=== PATIENT | female | born 1960 | race Caucasian/White ===

== ENCOUNTER 2016-11-07 01:51 | Emergency (ER) | payer OTHER ==
[2016-11-07] MEDS ORDERED: methylPREDNISolone 125 MG* 2 ML VIAL IV ONE (01:55)
[2016-11-07] MEDS ORDERED: Albuterol/Ipratropium NEB.SOL* Albuterol 2.5 MG/Ipratropium 0.5 MG 3 ML INH ONE (01:55)
[2016-11-07 02:19] LABS: Hematocrit 38 % (35-47); Mean Corpuscular HGB Conc 35 g/dl (31-36); Mean Corpuscular Hemoglobin 31 pg (27-31); Mean Corpuscular Volume 90 fL (80-97); Mean Platelet Volume 9 um3 (7.4-10.4); Red Blood Count 4.17 10^6/ul (4.0-5.4); Red Cell Distribution Width 12 % (10.5-15); White Blood Count 8.2 10^3/ul (3.5-10.8)
[2016-11-07 02:22] LABS: Add Diff/Slide Review? Slide Review Added; Comments Flag Yes
[2016-11-07 02:30] LABS: Albumin 3.7 g/dL (3.2-5.2); BUN/Creatinine Ratio 13.6 (8-20); Calcium 9.4 mg/dL (8.6-10.3); EGFR African American 136.1 (>60); EGFR Non-African American 105.8 (>60); Globulin 3.7 g/dL (2-4); Total Bilirubin 1.1 mg/dL (0.2-1.0); Total Protein 7.4 g/dL (6.4-8.9)
[2016-11-07] MEDS ORDERED: Potassium Chloride LIQUID* 20 MEQ PACKET PO ONE (02:42)
[2016-11-07] MEDS ORDERED: Potassium Chlor TAB* 20 MEQ TAB.ER PO ONE (03:06)
--- NOTE | 2016-11-07 03:18 | ED ---
Luis Enrique Wills Benjamin, scribed for Adam Mota MD on 11/07/16 at 0200 . Shortness of Breath - HPI Summary HPI Summary: 55yo female c/o SOB and nonproductive cough. Pt has been dx'ed with PNA on the , and is on amoxicillin for about a week now. - History of Current Complaint Chief Complaint: EDShortnessOfBreath Time Seen by Provider: 11/07/16 01:52 Hx Obtained From: Patient Onset/Duration: Gradual Onset, Lasting Days, Still Present Current Severity: Moderate Dyspnea At: Rest Aggrevating Factors: Nothing Associated Signs & Symptoms: Cough (Nonproductive) - Allergy/Home Medications Allergies/Adverse Reactions: Allergies Allergy/AdvReac Type Severity Reaction Status Date / Time Lisinopril Allergy Coughing Verified 11/07/16 01:55 PMH/Surg Hx/FS Hx/Imm Hx Cardiovascular History: Reports: Hx Hypertension Respiratory History: Reports: Hx Pneumonia Infectious Disease History: No Infectious Disease History: Denies: Traveled Outside the [place] in Last 30 Days - Family History Known Family History: Positive: Other - Prostate CA Negative: Cardiac Disease, Hypertension, Diabetes - Social History Occupation: Employed Full-time Lives: Alone Alcohol Use: Occasionally Smoking Status (MU): Current Some Day Smoker Review of Systems Constitutional: Negative Eyes: Negative ENT: Negative Cardiovascular: Negative Positive: Shortness Of Breath, Cough Gastrointestinal: Negative Genitourinary: Negative Musculoskeletal: Negative Skin: Negative Neurological: Negative Psychological: Normal All Other Systems Reviewed And Are Negative: Yes Physical Exam Triage Information Reviewed: Yes Vital Signs On Initial Exam: Initial Vitals Temp Pulse Resp BP Pulse Ox 100.2 F 92 19 107/69 94 11/07/16 01:53 11/07/16 01:53 11/07/16 01:53 11/07/16 01:53 11/07/16 01:53 Vital Signs Reviewed: Yes Appearance: Positive: Well-Appearing, No Pain Distress Skin: Positive: Warm Head/Face: Positive: Normal Head/Face Inspection Eyes: Positive: KERA ENT: Positive: Hearing grossly normal Neck: Positive: Supple Respiratory/Lung Sounds: Positive: Breath Sounds Present, Rhonchi - few coarse, scattered Cardiovascular: Positive: RRR Abdomen Description: Positive: Nontender, Soft Bowel Sounds: Positive: Present Musculoskeletal: Positive: Strength/ROM Intact Neurological: Positive: Alert, Oriented to Person Place, Time Psychiatric: Positive: Affect/Mood Appropriate Diagnostics - Vital Signs Vital Signs Temp Pulse Resp BP Pulse Ox 11/07/16 01:53 100.2 F 92 19 107/69 94 - Laboratory Lab Results: Lab Results 11/07/16 11/07/16 Range/Units 02:00 02:00 WBC 8.2 (3.5-10.8) 10^3/ul RBC 4.17 (4.0-5.4) 10^6/ul Hgb 13.0 (12.0-16.0) g/dl Hct 38 (35-47) % MCV 90 (80-97) fL MCH 31 (27-31) pg MCHC 35 (31-36) g/dl RDW 12 (10.5-15) % Plt Count 190 (150-450) 10^3/ul MPV 9 (7.4-10.4) um3 Neut % (Auto) 73.0 (38-83) % Lymph % (Auto) 15.7 L (25-47) % Quay % (Auto) 9.5 H (1-9) % Eos % (Auto) 0.4 (0-6) % Baso % (Auto) 1.4 (0-2) % Absolute Neuts (auto) 6.0 (1.5-7.7) 10^3/ul Absolute Lymphs (auto) 1.3 (1.0-4.8) 10^3/ul Absolute Monos (auto) 0.8 (0-0.8) 10^3/ul Absolute Eos (auto) 0 (0-0.6) 10^3/ul Absolute Basos (auto) 0.1 (0-0.2) 10^3/ul Absolute Nucleated RBC 0.01 10^3/ul Nucleated RBC % 0.1 Sodium 131 L (133-145) mmol/L Potassium 3.0 L (3.5-5.0) mmol/L Chloride 98 L (101-111) mmol/L Carbon Dioxide 26 (22-32) mmol/L Anion Gap 7 (2-11) mmol/L BUN 8 (6-24) mg/dL Creatinine 0.59 (0.51-0.95) mg/dL Est GFR ( Amer) 136.1 (>60) Est GFR (Non-Af Amer) 105.8 (>60) BUN/Creatinine Ratio 13.6 (8-20) Glucose 109 H (70-100) mg/dL Calcium 9.4 (8.6-10.3) mg/dL Total Bilirubin 1.10 H (0.2-1.0) mg/dL AST 68 H (13-39) U/L ALT 71 H (7-52) U/L Alkaline Phosphatase 68 (34-104) U/L Total Protein 7.4 (6.4-8.9) g/dL Albumin 3.7 (3.2-5.2) g/dL Globulin 3.7 (2-4) g/dL Albumin/Globulin Ratio 1.0 (1-3) Result Diagrams: 11/07/16 02:00 11/07/16 02:00 Lab Statement: Any lab studies that have been ordered have been reviewed, and results considered in the medical decision making process. - Radiology CXR Xray Interpretation: No Acute Changes Radiology Interpretation Completed By: ED Physician Re-Evaluation - Re-Evaluation First Eval Change: Improved Course/Dx - Diagnoses Provider Diagnoses: resolving pneumonia, Bronchitis Discharge - Discharge Plan Condition: Stable Disposition: HOME Prescriptions: predniSONE TAB* [Deltasone TAB*] 40 mg PO DAILY #8 tab Patient Education Materials: Acute Bronchitis (ED) Referrals: No Primary Care Phys,NOPCP [Primary Care Provider] - The documentation as recorded by the Luis Enrique michelle Benjamin accurately reflects the service I personally performed and the decisions made by me, Adam Mota MD.
[2016-11-07 03:35] VITALS: BP 111/68
--- NOTE | 2016-11-07 07:33 | RAD ---
HISTORY: Shortness of breath, near syncope COMPARISONS: None VIEWS: 2: Frontal dual-energy and lateral views of the chest. FINDINGS: CARDIOMEDIASTINAL SILHOUETTE: The cardiomediastinal silhouette is normal. YE: The ye are normal. PLEURA: The costophrenic angles are sharp. No pleural abnormalities are noted. LUNG PARENCHYMA: There is confluent alveolar opacification of the lung bases bilaterally, greater on the right than on the left ABDOMEN: The upper abdomen is clear. There is no subphrenic gas. BONES AND SOFT TISSUES: No bone or soft tissue abnormalities are noted. OTHER: None. IMPRESSION: BIBASILAR CONSOLIDATION. RECOMMEND FOLLOW-UP UNTIL RESOLUTION TO EXCLUDE UNDERLYING PULMONARY PARENCHYMAL PATHOLOGY
== END 2016-11-07 03:36 | disposition home or self-care (01) ==
LOC: ED 01:51
DX: J18.9 Pneumonia, unspecified organism (principal); R06.02 Shortness of breath; R05 Cough; Z72.0 Tobacco use; J40 Bronchitis, not specified as acute or chronic
CPT/HCPCS: 36415; 71020; 80053; 85025; 94640; 99283; A9270-GY; J2930